=== PATIENT | female | born 1970 | race Caucasian/White ===

== ENCOUNTER 2017-04-12 21:21 | Emergency (ER) | payer BC ==
--- NOTE | 2017-04-12 21:53 | ED ---
Lower Extremity Injury HPI - General Chief Complaint: Extremity Injury, Lower Stated Complaint: knee pain Time Seen by Provider: 04/12/17 21:34 Source: patient, family Mode of arrival: ambulatory Limitations: no limitations, physical limitation - History of Present Illness Initial Comments: This patient is a 46-year-old woman who presents with 24 hours of pain to the distal right thigh, just proximal to the right patella. She states that it is also feeling difficult to fully extend the right leg. Patient denies any trauma. She does not recall twisting her knee. She furthermore denies associated fever or chills, chest pain, cough, dyspnea, hematemesis, palpitations or syncope. MD Complaint: thigh injury Onset/Timin -: hour(s) Injury: Thigh: Right Type of Injury: other Place: home Severity: mild Improves With: nothing Worsens With: movement - Related Data Home Medications Medication Instructions Recorded Confirmed ALPRAZolam [Xanax] 1 mg PO DAILY 04/12/17 04/12/17 Ibuprofen [Motrin] 800 mg PO DAILY 04/12/17 04/12/17 Levothyroxine Sodium [Synthroid] 125 mcg PO DAILY 04/12/17 04/12/17 Methocarbamol [Robaxin] 750 mg PO DAILY 04/12/17 04/12/17 Multivitamins, Thera [Multivitamin 1 tab PO DAILY 04/12/17 04/12/17 (formulary)] Omeprazole 20 mg PO DAILY 04/12/17 04/12/17 Pregabalin [Lyrica] 100 mg PO BID 04/12/17 04/12/17 Previous Rx's Medication Instructions Recorded Ibuprofen [Motrin] 600 mg PO Q8HR PRN #20 tab 04/13/17 Allergies Allergy/AdvReac Type Severity Reaction Status Date / Time No Known Allergies Allergy Verified 04/12/17 22:17 Review of Systems ROS Statement: Those systems with pertinent positive or pertinent negative responses have been documented in the HPI. ROS Other: All systems not noted in ROS Statement are negative. Constitutional: Denies: fever, chills Respiratory: Denies: cough, dyspnea, hemoptysis Cardiovascular: Denies: chest pain, palpitations, edema, syncope Musculoskeletal: Reports: as per HPI, myalgia Past Medical History Past Medical History: Thyroid Disorder Additional Past Medical History / Comment(s): neuro deficits History of Any Multi-Drug Resistant Organisms: None Reported Past Surgical History: Orthopedic Surgery Additional Past Surgical History / Comment(s): "brain decompression" surgery Jul 2015, thyroidectomy Past Psychological History: Anxiety Smoking Status: Never smoker Past Alcohol Use History: None Reported Past Drug Use History: None Reported General Exam Limitations: no limitations, physical limitation Course Vital Signs 04/12/17 04/12/17 21:26 23:21 Temperature 100 F H 98.5 F Pulse Rate 104 H 79 Respiratory 20 18 Rate Blood Pressure 142/89 114/73 O2 Sat by Pulse 99 99 Oximetry Disposition Clinical Impression: Strain of quadriceps Disposition: HOME SELF-CARE Condition: Good Instructions: Muscle Strain (ED) Prescriptions: Ibuprofen [Motrin] 600 mg PO Q8HR PRN #20 tab PRN Reason: Pain Referrals: Tawanna Mac III, MD [Primary Care Provider] - 1-2 days
[2017-04-12 23:22] VITALS: BP 114/73; PULSE 79; RESP 18; TEMP 98.5
--- NOTE | 2017-04-12 23:29 | US ---
EXAMINATION TYPE: US venous doppler duplex LE RT DATE OF EXAM: 04/12/2017 11:06 PM COMPARISON: NONE CLINICAL HISTORY: Pain, R/O DVT. right leg pain SIDE PERFORMED: TECHNIQUE: The lower extremity deep venous system is examined utilizing real time linear array sonog racquel with graded compression, doppler sonography and color-flow sonography. VESSELS IMAGED: External Iliac Vein (EIV) Common Femoral Vein Deep Femoral Vein Greater Saphenous Vein * Femoral Vein Popliteal Vein Small Saphenous Vein * Proximal Calf Veins (* superficial vessels) Right Leg: Negative for DVT No evidence of DVT right leg IMPRESSION: Normal exam. No evidence of deep venous thrombosis in the right leg.
== END 2017-04-13 00:19 | disposition home or self-care (01) ==
LOC: EC 21:21
DX: S76.111A Strain of right quadriceps muscle, fascia and tendon, initial encounter (principal); E07.9 Disorder of thyroid, unspecified; F41.9 Anxiety disorder, unspecified; Z79.1 Long term (current) use of non-steroidal anti-inflammatories (NSAID); Z79.899 Other long term (current) drug therapy; X58.XXXA Exposure to other specified factors, initial encounter
CPT/HCPCS: 99283

== ENCOUNTER → 2017-07-27 | Outpatient (CLI) | payer BC ==
--- NOTE | 2017-07-27 14:31 | XR ---
EXAMINATION TYPE: XR chest 2V DATE OF EXAM: 07/27/2017 COMPARISON: 06/24/2012 INDICATION: Chest pain TECHNIQUE: Frontal and lateral views of the chest are obtained. FINDINGS: The heart size is normal. The pulmonary vasculature is normal. The lungs are clear. IMPRESSION: 1. No acute pulmonary process.
== END | disposition home or self-care (01) ==
LOC: RADXRMAIN 14:09
PROVIDERS: ATTEND Physician Assistant Medical
DX: R07.89 Other chest pain (principal)
CPT/HCPCS: 71046

== ENCOUNTER → 2017-09-27 | Outpatient (CLI) | payer BC ==
[~2017-09-27] MED LIST: REGADENOSON 0.4 MG/5 ML SYRINGE IV ONE
--- NOTE | 2017-09-27 11:33 | EST ---
EXERCISE STRESS AGE: 47 SEX: F HT: 5'2" WT: 200 PROTOCOL: Lexiscan Cardiolite Stress Test HEART RATE REST: 77 BLOOD PRESSURE REST: 130/88 MAXIMUM HEART RATE ACHIEVED: 102 MAXIMUM BLOOD PRESSURE: 130/88 85% MPHR: 149 100% MPHR: 175 INDICATIONS: Chest pain. CLINICAL INFORMATION: Baseline EKG shows sinus rhythm, normal axis, normal intervals. Patient was given intravenous Lexiscan as per protocol. Did not have chest pain or diagnostic ST-segment depression. CONCLUSION: 1. Negative stress test by EKG criteria. 2. Cardiolite portion of the stress test will be reported separately. MMODL / IJN: [id number] /
--- NOTE | 2017-09-27 12:05 | NM ---
EXAMINATION TYPE: NM stress lexiscan cardiolite DATE OF EXAM: 09/27/2017 COMPARISON: NONE HISTORY: Chest pain, shortness of breath, palpitations, family history of coronary artery disease, fa cial numbness, hypertension and prior myocardial infarction. TECHNIQUE: After the intravenous administration of 10.1 mCi Tc 99m Sestamibi - Cardiolite resting SP ECT images acquired 45 minutes post injection. The patient received 0.4mg Lexiscan, 25 mCi Tc 99m Sestamibi - Stress images obtained 30 minutes post injection FINDINGS: Review of stress and rest SPECT images demonstrates no distinct perfusion abnormality. Findings on th e color map are not reproduced on the sagittal, coronal, and axial images. Gated analysis shows norm al wall motion with an estimated left ventricular ejection fraction of 60 % at stress. TID is calc ulated within normal limits at 1.11. IMPRESSION: 1. No scintigraphic evidence for reversible ischemia. 2. Estimated left ventricular ejection fraction of 60%.
== END | disposition home or self-care (01) ==
LOC: RADNMMAIN 08:20
PROVIDERS: ATTEND Family Medicine
DX: R07.89 Other chest pain (principal); R06.02 Shortness of breath; Z82.49 Family history of ischemic heart disease and other diseases of the circulatory system; Z88.8 Allergy status to other drugs, medicaments and biological substances
CPT/HCPCS: 93017; 78452; A9500; J2785

== ENCOUNTER → 2018-01-23 | Outpatient (CLI) | payer MEDICARE ==
--- NOTE | 2018-01-24 08:44 | XR ---
EXAMINATION TYPE: XR foot complete LT DATE OF EXAM: 01/23/2018 CLINICAL HISTORY: pain TECHNIQUE: Frontal, lateral and oblique images of the left foot are obtained. COMPARISON: None. FINDINGS: There is no acute fracture/dislocation evident. The joint spaces appear within normal chisholm its. The overlying soft tissue appears unremarkable. Plantar calcaneal spur noted. IMPRESSION: There is no acute fracture or dislocation. ICD 10 NO FRACTURE, INITIAL EVALUATION
== END | disposition home or self-care (01) ==
LOC: RADCTMAIN 19:44
PROVIDERS: ATTEND Family Medicine
DX: M79.672 Pain in left foot (principal)

== ENCOUNTER 2018-03-30 10:33 | Emergency (ER) | payer MEDICARE ==
--- NOTE | 2018-03-30 11:23 | CT ---
EXAMINATION TYPE: CT lumbar spine wo con DATE OF EXAM: 03/30/2018 COMPARISON: None HISTORY: Low back pain CT DLP: 770.6 mGycm CONTRAST: None TECHNIQUE: CT of the lumbar spine is performed on a spiral scan at 3 mm thick sections. Reconstructed images are performed in the coronal and sagittal planes. FINDINGS: T12-L1: No focal disc herniation or significant disc bulge is evident. No spinal canal stenosis or neural foraminal stenosis is present. L1-L2: No focal disc herniation or significant disc bulge is evident. No spinal canal stenosis or n eural foraminal stenosis is present L2-L3: No focal disc herniation or significant disc bulge is evident. No spinal canal stenosis or n eural foraminal stenosis is present L3-L4: Broad-based disc bulge has mild anterior thecal sac flattening. No AP spinal canal stenosis pr esent. Neural foramen are patent. L4-L5: Minimal disc bulge is anterior thecal sac contact. No AP spinal canal stenosis is present neur al foramen are patent. L5-S1: No focal disc herniation or significant disc bulge is evident. No spinal canal stenosis or n eural foraminal stenosis is present Vertebral alignment appears normal. Some mild sacroiliac joint degenerative change may be present. No acute fractures are evident. IMPRESSION: 1. Disc bulging greatest at L3-4 with mild anterior thecal sac flattening. No stenosis is present.
--- NOTE | 2018-03-30 11:29 | ED ---
General Adult HPI - General Chief complaint: Back Pain/Injury Stated complaint: low back pain Time Seen by Provider: 03/30/18 10:37 Source: patient, RN notes reviewed Mode of arrival: ambulatory Limitations: no limitations - History of Present Illness Initial comments: This a 47-year-old female presents emergency Department with chief complaint of right foot burning sensation of her first digit. Patient states that the very tip it's severe pain. She states that even hurts when brushing against objects. Patient states his been no redness no swelling. She states only injury that she had was 6 days ago she fell back on her left buttocks region. Patient has had pain in her buttocks region but is very mild. She does admit that she has chronic issues with fall and chronic back and neck issues. Patient states that she's had no bowel bladder incontinence or retention. Patient denies any lower extremity weakness of usual. She is in physical therapy for her right knee internal derangement. Patient denies any abdominal pain. Patient has fever or chills. - Related Data Home Medications Medication Instructions Recorded Confirmed ALPRAZolam [Xanax] 1 mg PO HS 04/12/17 03/30/18 Ibuprofen [Motrin] 800 mg PO BID 04/12/17 03/30/18 Levothyroxine Sodium [Synthroid] 125 mcg PO DAILY 04/12/17 03/30/18 Baclofen [Lioresal] 10 mg PO QAM 03/30/18 03/30/18 Baclofen [Lioresal] 20 mg PO HS 03/30/18 03/30/18 Previous Rx's Medication Instructions Recorded predniSONE 50 mg PO DAILY #5 tab 03/30/18 Allergies Allergy/AdvReac Type Severity Reaction Status Date / Time No Known Allergies Allergy Verified 03/30/18 10:50 Review of Systems ROS Statement: Those systems with pertinent positive or pertinent negative responses have been documented in the HPI. ROS Other: All systems not noted in ROS Statement are negative. Past Medical History Past Medical History: Thyroid Disorder Additional Past Medical History / Comment(s): neuro deficits History of Any Multi-Drug Resistant Organisms: None Reported Past Surgical History: Orthopedic Surgery Additional Past Surgical History / Comment(s): "brain decompression" surgery Jul 2015, thyroidectomy Past Psychological History: Anxiety Smoking Status: Never smoker Past Alcohol Use History: None Reported Past Drug Use History: None Reported General Exam Limitations: no limitations General appearance: alert, in no apparent distress Head exam: Present: atraumatic, normocephalic, normal inspection Respiratory exam: Present: normal lung sounds bilaterally. Absent: respiratory distress, wheezes, rales, rhonchi, stridor Cardiovascular Exam: Present: regular rate, normal rhythm, normal heart sounds. Absent: systolic murmur, diastolic murmur, rubs, gallop, clicks GI/Abdominal exam: Present: soft, normal bowel sounds. Absent: distended, tenderness, guarding, rebound, rigid Rectal exam: Present: normal inspection, normal rectal tone, other (No decreased sensation) Extremities exam: Present: other (Full range of motion of lower extremities and full strength neurovascular intact there is no open lesions or sores no erythema into the joint patient's right foot is unremarkable.) Course Vital Signs 03/30/18 10:37 Temperature 98.2 F Pulse Rate 66 Respiratory 18 Rate Blood Pressure 137/88 O2 Sat by Pulse 100 Oximetry Medical Decision Making - Medical Decision Making 47-year-old female presented for right foot first toe pain and burning sensation. She does have a cystic herniation at L3-L4 consistent with her symptoms. Patient has normal course residual 203 to 18 post void. Patient normal rectal tone and sensation. Patient was started on steroids, given pain medication and follow-up with lumbar radiculopathy type symptoms. Patient will see Dr. Charles return parameters were discussed. - Lab Data Result diagrams: 03/30/18 11:08 03/30/18 11:08 Lab Results 03/30/18 03/30/18 Range/Units 11:08 11:08 WBC 5.1 (3.8-10.6) k/uL RBC 4.76 (3.80-5.40) m/uL Hgb 14.2 (11.4-16.0) gm/dL Hct 42.8 (34.0-46.0) % MCV 90.0 (80.0-100.0) fL MCH 29.9 (25.0-35.0) pg MCHC 33.2 (31.0-37.0) g/dL RDW 13.0 (11.5-15.5) % Plt Count 219 (150-450) k/uL Neutrophils % 55 % Lymphocytes % 37 % Monocytes % 4 % Eosinophils % 2 % Basophils % 0 % Neutrophils # 2.8 (1.3-7.7) k/uL Lymphocytes # 1.9 (1.0-4.8) k/uL Monocytes # 0.2 (0-1.0) k/uL Eosinophils # 0.1 (0-0.7) k/uL Basophils # 0.0 (0-0.2) k/uL Sodium 143 (137-145) mmol/L Potassium 4.3 (3.5-5.1) mmol/L Chloride 109 H (98-107) mmol/L Carbon Dioxide 26 (22-30) mmol/L Anion Gap 8 mmol/L BUN 11 (7-17) mg/dL Creatinine 0.64 (0.52-1.04) mg/dL Est GFR (CKD-EPI)AfAm >90 (>60 ml/min/1.73 sqM) Est GFR (CKD-EPI)NonAf >90 (>60 ml/min/1.73 sqM) Glucose 87 (74-99) mg/dL Uric Acid 3.0 L (3.7-7.4) mg/dL Calcium 8.9 (8.4-10.2) mg/dL Magnesium 2.3 (1.6-2.3) mg/dL C-Reactive Protein <5.0 (<10.0) mg/L Disposition Clinical Impression: Lumbar radiculopathy, acute, Lumbar disc herniation Disposition: HOME SELF-CARE Condition: Stable Instructions: Lumbar Radiculopathy (ED) Additional Instructions: Please return to the Emergency Department if symptoms worsen or any other concerns. Prescriptions: predniSONE 50 mg PO DAILY #5 tab Is patient prescribed a controlled substance at d/c from ED?: No Referrals: Tawanna Mac III, MD [Primary Care Provider] - 1-2 days Giorgio Valerio DO [Doctor of Osteopathic Medicine] - 1-2 days Time of Disposition: 12:43
[2018-03-30 11:51] LABS: Basophils % (A) 0 %; Eosinophils # (A) 0.1 k/uL (0-0.7); Eosinophils % (A) 2 %; HCT 42.8 % (34.0-46.0); HGB 14.2 gm/dL (11.4-16.0); Lymphocytes # (A) 1.9 k/uL (1.0-4.8); Lymphocytes % (A) 37 %; MCH 29.9 pg (25.0-35.0); MCHC 33.2 g/dL (31.0-37.0); Mean Platelet Volume 8.2; Monocytes # (A) 0.2 k/uL (0-1.0); Monocytes % (A) 4 %; Neutrophils # (A) 2.8 k/uL (1.3-7.7); Neutrophils % (A) 55 %; Platelet Count 219 k/uL (150-450); RBC 4.76 m/uL (3.80-5.40); WBC 5.1 k/uL (3.8-10.6)
[2018-03-30 11:57] LABS: Anion Gap 8 mmol/L; Blood Urea Nitrogen 11 mg/dL (7-17); C Reactive Protein <5.0 mg/L (<10.0); Calcium 8.9 mg/dL (8.4-10.2); Carbon Dioxide 26 mmol/L (22-30); Chloride 109 mmol/L (98-107); Glucose 87 mg/dL (74-99); Magnesium 2.3 mg/dL (1.6-2.3); Potassium 4.3 mmol/L (3.5-5.1); Sodium 143 mmol/L (137-145)
[2018-03-30 12:42] VITALS: BP 133/88; PULSE 58; RESP 16
[2018-03-30] MEDS ORDERED: traMADol 50 MG STARTER PACK 3 TAB BTL PO STA (12:42)
[2018-03-30] MEDS ORDERED: ACET/COD 300 MG/30 MG STARTER PACK 6 TAB BTL PO STA (12:42)
[2018-03-30] MEDS ORDERED: predniSONE 20 MG TAB PO STA (12:43)
[2018-03-30 12:59] VITALS: TEMP 98.6
== END 2018-03-30 12:55 | disposition home or self-care (01) ==
LOC: EC 10:33
DX: M51.16 Intervertebral disc disorders with radiculopathy, lumbar region (principal); E07.9 Disorder of thyroid, unspecified; F41.9 Anxiety disorder, unspecified; Z79.1 Long term (current) use of non-steroidal anti-inflammatories (NSAID); Z79.899 Other long term (current) drug therapy
CPT/HCPCS: 36415; 80048; 83735; 84550; 85025; 86140; 72131; 99284; J7512

== ENCOUNTER 2018-04-04 11:35 | Emergency (ER) | payer MEDICARE ==
[2018-04-04] MEDS ORDERED: DIAZEPAM 5 MG/ML 2 ML INJ IVP STA (12:29)
[2018-04-04] MEDS ORDERED: RX INFO: IV CONTRAST WAS GIVEN 1 EACH MISC MISCELLANE PRN (12:31)
--- NOTE | 2018-04-04 12:36 | ED ---
General Adult HPI - General Chief complaint: Back Pain/Injury Stated complaint: Something popped in back hurts to be breathe Time Seen by Provider: 04/04/18 11:40 Source: patient, RN notes reviewed Mode of arrival: wheelchair Limitations: no limitations - History of Present Illness Initial comments: This is a 47-year-old female who has a past medical history significant for Chiari malformation which was decompressed and 2016 2-1/2 years ago. Patient states since then she's had some generalized weakness and muscle pains. Patient comes in today because she was putting a bun in her hair and when she twists she felt a pain in the middle of her back. Patient also states taking deep breaths increases the pain.. Patient states any movement makes the pain worse. Patient denies any problems with shortness of breath but states any bending twisting increases the pain significantly. Patient denies any numbness or weakness. Patient states she's had two-week history of some burning sensation to her fingers and toes. Patient states she is seen her doctor twice and the emergency room once before for that. Patient states she's finishing up a steroid pack currently for lower back problems which she was seen in the emergency department for recently. Patient denies any recent injury or trauma. Patient denies any abdominal pain. Patient denies any chest pain or palpitations. - Related Data Home Medications Medication Instructions Recorded Confirmed ALPRAZolam [Xanax] 1 mg PO HS 04/12/17 04/04/18 Ibuprofen [Motrin] 800 mg PO BID 04/12/17 04/04/18 Levothyroxine Sodium [Synthroid] 125 mcg PO DAILY 04/12/17 04/04/18 Baclofen [Lioresal] 10 mg PO QAM 03/30/18 04/04/18 Baclofen [Lioresal] 20 mg PO HS 03/30/18 04/04/18 Previous Rx's Medication Instructions Recorded predniSONE 50 mg PO DAILY #5 tab 03/30/18 Cyclobenzaprine [Flexeril] 10 mg PO TID #20 tab 04/04/18 Allergies Allergy/AdvReac Type Severity Reaction Status Date / Time No Known Allergies Allergy Verified 04/04/18 12:04 Review of Systems ROS Statement: Those systems with pertinent positive or pertinent negative responses have been documented in the HPI. ROS Other: All systems not noted in ROS Statement are negative. Past Medical History Past Medical History: Thyroid Disorder Additional Past Medical History / Comment(s): neuro deficits History of Any Multi-Drug Resistant Organisms: None Reported Past Surgical History: Orthopedic Surgery Additional Past Surgical History / Comment(s): "brain decompression" surgery Jul 2015, thyroidectomy Past Psychological History: Anxiety Smoking Status: Never smoker Past Alcohol Use History: None Reported Past Drug Use History: None Reported General Exam - General Exam Comments Initial Comments: GENERAL: Patient is well-developed and well-nourished. Patient is nontoxic and well- hydrated and is in moderate distress. ENT: Neck is soft and supple. No significant lymphadenopathy is noted. Oropharynx is clear. Moist mucous membranes. Neck has full range of motion without eliciting any pain. EYES: The sclera were anicteric and conjunctiva were pink and moist. Extraocular movements were intact and pupils were equal round and reactive to light. Eyelids were unremarkable. PULMONARY: Unlabored respirations. Good breath sounds bilaterally. No audible rales rhonchi or wheezing was noted. CARDIOVASCULAR: There is a regular rate and rhythm without any murmurs gallops or rubs. ABDOMEN: Soft and nontender with normal bowel sounds. SKIN: Skin is clear with no lesions or rashes and otherwise unremarkable. NEUROLOGIC: Patient is alert and oriented x3. Cranial nerves II through XII are grossly intact. Motor and sensory are also intact. Normal speech, volume and content. Symmetrical smile. MUSCULOSKELETAL: Normal extremities with adequate strength and full range of motion. No lower extremity swelling or edema. No calf tenderness. Mid back is tender in the paraspinous muscles bilaterally LYMPHATICS: No significant lymphadenopathy is noted PSYCHIATRIC: Normal psychiatric evaluation. Limitations: no limitations Course Vital Signs 04/04/18 04/04/18 04/04/18 11:39 11:57 12:00 Temperature 97.9 F Pulse Rate 83 68 Pulse Rate [ Pulse Oximetery ] Respiratory 20 15 Rate Blood Pressure 154/105 143/107 O2 Sat by Pulse 100 92 L 98 Oximetry 04/04/18 04/04/18 04/04/18 12:01 12:30 13:54 Temperature Pulse Rate 70 67 Pulse Rate [ 71 Pulse Oximetery ] Respiratory 12 20 Rate Blood Pressure 141/101 133/91 O2 Sat by Pulse 97 98 Oximetry Medical Decision Making - Medical Decision Making CAT scan showed no evidence of any acute injury or problem. Patient received Dilaudid and Valium while in the emergency department her pain went down to a 2 out of 10 she's feeling considerably better when like to be discharged home. Disposition Clinical Impression: Thoracic back pain Disposition: HOME SELF-CARE Condition: Good Instructions: Thoracic Pain (ED) Prescriptions: Cyclobenzaprine [Flexeril] 10 mg PO TID #20 tab Is patient prescribed a controlled substance at d/c from ED?: No Referrals: Tawanna Mac III, MD [Primary Care Provider] - 1-2 days Time of Disposition: 14:37
[2018-04-04] MEDS ORDERED: ONDANSETRON 4 MG/2 ML VIAL IVP STA (13:31)
[2018-04-04] MEDS ORDERED: HYDROmorphone 1 MG/ML 1 ML SYRINGE IVP STA (13:31)
--- NOTE | 2018-04-04 13:45 | CT ---
EXAMINATION TYPE: CT ChestAbdPelvis w con DATE OF EXAM: 04/04/2018 COMPARISON: HISTORY: [place] something pop in her back, JUNAITA, difficult urination CT DLP: 872.4 mGycm Automated exposure control for dose reduction was used. CONTRAST: CT scan of the chest, abdomen and pelvis is performed without Oral Contrast and with IV Contrast, pat ient injected with 100 mL of Isovue 300. FINDINGS: LUNGS: The lungs are grossly clear, there is no concerning parenchymal mass or nodule identified. T here is no pleural effusion or pneumothorax seen. The tracheobronchial tree is patent. MEDIASTINUM: There are no greater than 1 cm hilar or mediastinal lymph nodes. No pericardial effusi on is seen. AORTA: No significant abnormality is seen. There is no dissection or embolus evident OTHER: No additional significant abnormality is seen. LIVER/GB: Liver shows low attenuation but is not enlarged, gallbladder is normal. PANCREAS: No significant abnormality is seen. SPLEEN: No significant abnormality is seen. ADRENALS: No significant abnormality is seen. KIDNEYS: No significant abnormality is seen. REPRODUCTIVE ORGANS: The uterus is bulky likely indicating underlying fibroid uterus, small focus of increased attenuation present at the cervix may be related to nabothian cysts BOWEL: No significant abnormality is seen. FREE AIR: No Free Air visible. ASCITES: None seen. RETROPERITONEAL ADENOPATHY: No retroperitoneal adenopathy is seen. LYMPH NODES: No greater than 1 cm abdominal or pelvic lymph nodes are appreciated. URINARY BLADDER: No significant abnormality is seen. PELVIC ADENOPATHY: None visualized. OSSEOUS STRUCTURES: No significant abnormality is seen. IMPRESSION: No significant abnormalities evident. Fibroid uterus.
[2018-04-04 13:55] VITALS: RESP 20
[2018-04-04] MEDS ORDERED: KETOROLAC 60 MG/2 ML VIAL IVP STA (14:36)
[2018-04-04 15:23] VITALS: BP 147/96; PULSE 61; TEMP 98.3
== END 2018-04-04 15:18 | disposition home or self-care (01) ==
LOC: EC 11:35
DX: M54.6 Pain in thoracic spine (principal); R53.1 Weakness; M79.10 Myalgia, unspecified site; E07.9 Disorder of thyroid, unspecified; F41.9 Anxiety disorder, unspecified; Z79.1 Long term (current) use of non-steroidal anti-inflammatories (NSAID); Z79.899 Other long term (current) drug therapy; Z90.89 Acquired absence of other organs; Z98.890 Other specified postprocedural states
CPT/HCPCS: 71260; 74177; 96374; 96375; 99284

== ENCOUNTER → 2020-05-27 | Outpatient (CLI) | payer MEDICARE, BC ==
[2020-05-27 11:11] LABS: Basophils % (A) 1 %; Eosinophils # (A) 0.1 k/uL (0-0.7); Eosinophils % (A) 1 %; HCT 45.1 % (34.0-46.0); Lymphocytes # (A) 1.5 k/uL (1.0-4.8); Lymphocytes % (A) 24 %; MCH 30.3 pg (25.0-35.0); MCHC 33.3 g/dL (31.0-37.0); MCV 90.8 fL (80.0-100.0); Mean Platelet Volume 8.6; Monocytes # (A) 0.3 k/uL (0-1.0); Monocytes % (A) 4 %; Neutrophils # (A) 4.5 k/uL (1.3-7.7); Neutrophils % (A) 69 %; Platelet Count 208 k/uL (150-450); RBC 4.96 m/uL (3.80-5.40); RDW 12.8 % (11.5-15.5); WBC 6.4 k/uL (3.8-10.6)
[2020-05-27 13:42] LABS: Erythrocyte Sedimentation Rate 4 mm/hr (0-20)
[2020-05-27 19:14] LABS: ALT 18 U/L (8-44); AST 25 U/L (13-35); African American GFR (CKD) 119.6 (60.0-200.0); Alkaline Phosphatase 53 U/L (41-126); BUN/Creat Ratio 17.14 Ratio (12.00-20.00); C Reactive Protein <0.4 mg/dL (0.0-0.8); Calcium 8.8 mg/dL (8.7-10.3); Carbon Dioxide 25.6 mmol/L (21.6-31.8); Chloride 109 mmol/L (96-109); Globulin 2.1 g/dL (1.6-3.3); Glucose 85 mg/dL (70-110); Non-African American GFR(CKD) 103.2 (60.0-200.0); Potassium 4.7 mmol/L (3.5-5.5); Sodium 139 mmol/L (135-145); Total Bilirubin 0.8 mg/dL (0.3-1.2); Total Protein 6.5 g/dL (6.2-8.2)
[2020-05-28 00:08] LABS: Hemoglobin A1C 5.2 % (4.0-6.0)
[2020-05-28 12:34] LABS: HLA B27 NEGATIVE
== END | disposition home or self-care (01) ==
LOC: LABWHC1 10:33
PROVIDERS: ATTEND Physician Assistant Medical
DX: E89.0 Postprocedural hypothyroidism (principal); F41.9 Anxiety disorder, unspecified; G62.9 Polyneuropathy, unspecified; M62.81 Muscle weakness (generalized); M79.7 Fibromyalgia; Q07.00 Arnold-Chiari syndrome without spina bifida or hydrocephalus
CPT/HCPCS: 36415; 80053; 82306; 82607; 83036; 84443; 85025; 85652; 86140; 86812

== ENCOUNTER → 2020-09-02 | Outpatient (CLI) | payer MEDICARE ==
--- NOTE | 2020-09-04 10:57 | MM ---
Reason for exam: screening (asymptomatic). Last mammogram was performed 12 years and 5 months ago. History: Family history of breast cancer in grandmother. Physical Findings: A clinical breast exam by your physician is recommended on an annual basis and results should be correlated with mammographic findings. MG Screening Mammo w CAD Bilateral CC and MLO view(s) were taken. Prior study comparison: March 04, 2016, mammogram, performed at [facility]. The breast tissue is heterogeneously dense. This may lower the sensitivity of mammography. No significant changes when compared with prior studies. ASSESSMENT: Benign, BI-RAD 2 RECOMMENDATION: Routine screening mammogram of both breasts in 1 year.
== END | disposition home or self-care (01) ==
LOC: RADMAMWWP 11:11
PROVIDERS: ATTEND Obstetrics & Gynecology
DX: Z12.31 Encounter for screening mammogram for malignant neoplasm of breast (principal); Z80.3 Family history of malignant neoplasm of breast
CPT/HCPCS: 77067

== ENCOUNTER 2021-12-25 13:16 | Emergency (ER) | payer MEDICARE ==
--- NOTE | 2021-12-25 16:09 | CT ---
EXAMINATION TYPE: CT lumbar spine wo con CT DLP: 831.5 mGycm, Automated exposure control for dose reduction was used. DATE OF EXAM: 12/25/2021 3:43 PM COMPARISON: CT lumbar spine 03/30/2018. CLINICAL INDICATION:Female, 51 years old with history of pain, radicular symptoms; right toe pain TECHNIQUE: Multiple axial images were obtained from the midportion of T11 through the sacroiliac iggy nts. Soft tissue and bone windows in coronal and sagittal planes were obtained and reviewed. 3-D ref ormats of the bones were created on a separate workstation and submitted for review. FINDINGS: Alignment: There are 5 lumbar type vertebral bodies within normal alignment. Bone: No evidence of fracture is identified. Left sacrum sclerotic focus consistent bony island. Discs: T12-L1: No spinal canal or neural foraminal stenosis is identified. L1-L2: No spinal canal or neural foraminal stenosis is identified. L2-L3: No spinal canal or neural foraminal stenosis is identified. L3-L4: No spinal canal or neural foraminal stenosis is identified. L4-L5: No spinal canal or neural foraminal stenosis is identified. L5-S1: No spinal canal or neural foraminal stenosis is identified. Other: None IMPRESSION: 1. No evidence of fracture of the lumbar spine. 2. No significant spinal canal neural foraminal stenosis.
--- NOTE | 2021-12-25 16:36 | ED ---
General Adult HPI - General Chief complaint: Extremity Injury, Lower Stated complaint: leg pain Time Seen by Provider: 12/25/21 15:17 Source: patient, RN notes reviewed Mode of arrival: ambulatory Limitations: no limitations - History of Present Illness Initial comments: 51-year-old female presents emergency Department with chief complaint of right leg pain, spasms. Patient states that she always has some intermittent episodes but states it seemed more frequent recently. Patient states that she also had colon recent which she had some something diarrhea patient states that she had episodes in which she had stool herself. She did feel that she had a go to the bathroom. She has no urinary retention. Patient states that ever since her care physician surgeries she's had issues with right leg she does see neurology. Patient has no history DVT denies any leg discoloration or swelling noted. Patient also states that she has chronic paresthesias. - Related Data Home Medications Medication Instructions Recorded Confirmed ALPRAZolam [Xanax] 1 mg PO HS 04/12/17 04/04/18 Ibuprofen [Motrin] 800 mg PO BID 04/12/17 04/04/18 Levothyroxine Sodium [Synthroid] 125 mcg PO DAILY 04/12/17 04/04/18 Baclofen [Lioresal] 10 mg PO QAM 03/30/18 04/04/18 Baclofen [Lioresal] 20 mg PO HS 03/30/18 04/04/18 Previous Rx's Medication Instructions Recorded predniSONE 50 mg PO DAILY #5 tab 03/30/18 Cyclobenzaprine [Flexeril] 10 mg PO TID #20 tab 04/04/18 Allergies Allergy/AdvReac Type Severity Reaction Status Date / Time No Known Allergies Allergy Verified 12/25/21 13:21 Review of Systems ROS Statement: Those systems with pertinent positive or pertinent negative responses have been documented in the HPI. ROS Other: All systems not noted in ROS Statement are negative. Past Medical History Past Medical History: Thyroid Disorder Additional Past Medical History / Comment(s): neuro deficits History of Any Multi-Drug Resistant Organisms: None Reported Past Surgical History: Orthopedic Surgery Additional Past Surgical History / Comment(s): "brain decompression" surgery Jul 2015, thyroidectomy Past Psychological History: Anxiety Smoking Status: Never smoker Past Alcohol Use History: None Reported Past Drug Use History: None Reported General Exam Limitations: no limitations General appearance: alert, in no apparent distress Head exam: Present: atraumatic, normocephalic, normal inspection Eye exam: Present: normal appearance, PERRL, EOMI. Absent: scleral icterus, conjunctival injection, periorbital swelling ENT exam: Present: normal exam, normal oropharynx, mucous membranes moist Neck exam: Present: normal inspection, full ROM. Absent: tenderness, meningismus, lymphadenopathy Respiratory exam: Present: normal lung sounds bilaterally. Absent: respiratory distress, wheezes, rales, rhonchi, stridor Cardiovascular Exam: Present: regular rate, normal rhythm, normal heart sounds. Absent: systolic murmur, diastolic murmur, rubs, gallop, clicks Extremities exam: Present: other (Bilateral lower extremity pulses equal bilaterally, neurovascular intact, full range of motion equal equal warmth strength 5/5) Neurological exam: Present: reflexes normal. Absent: motor sensory deficit Course Vital Signs 12/25/21 12/25/21 13:17 15:48 Temperature 97.9 F Pulse Rate 99 69 Respiratory 18 18 Rate Blood Pressure 167/97 136/85 O2 Sat by Pulse 98 97 Oximetry Medical Decision Making - Medical Decision Making 42-year-old presented for right leg muscle spasms discomfort's patient's. Patient workup was negative including CT and ultrasound. Patient will follow-up with her neurologist or return parameters were discussed. Disposition Clinical Impression: Fasciculation of lower extremity Disposition: HOME SELF-CARE Condition: Stable Instructions (If sedation given, give patient instructions): Muscle Spasm (ED) Additional Instructions: Please return to the Emergency Department if symptoms worsen or any other concerns. Is patient prescribed a controlled substance at d/c from ED?: No Referrals: Viktoria Lorenzo MD [Primary Care Provider] - 1-2 days Time of Disposition: 17:01
--- NOTE | 2021-12-25 16:50 | US ---
EXAMINATION TYPE: US venous doppler duplex LE RT DATE OF EXAM: 12/25/2021 4:35 PM COMPARISON: Ultrasound venous duplex right lower extremity 04/12/2017. CLINICAL HISTORY: pain. SIDE PERFORMED: Right TECHNIQUE: The lower extremity deep venous system is examined utilizing real time linear array sonog racquel with graded compression, doppler sonography and color-flow sonography. VESSELS IMAGED: Common Femoral Vein Deep Femoral Vein Greater Saphenous Vein * Femoral Vein Popliteal Vein Small Saphenous Vein * Proximal Calf Veins (* superficial vessels) Grayscale, color doppler, spectral doppler imaging performed of the deep veins of the lower extremiti es. There is normal flow, compressibility, vascular waveforms. IMPRESSION: No ultrasound evidence of right lower extremity DVT.
[2021-12-25 17:16] VITALS: BP 128/99; PULSE 75; RESP 16; TEMP 97.8
== END 2021-12-25 17:14 | disposition home or self-care (01) ==
LOC: EC 13:16
DX: R25.3 Fasciculation (principal); E07.9 Disorder of thyroid, unspecified; Z79.899 Other long term (current) drug therapy
CPT/HCPCS: 72131; 99283

== ENCOUNTER → 2022-05-09 | Outpatient (CLI) | payer MEDICARE ==
--- NOTE | 2022-05-09 13:38 | XR ---
EXAMINATION TYPE: XR knee limited RT DATE OF EXAM: 05/09/2022 1:24 PM INDICATION: Patient age:Female; 51 years old; Reason for study: M25.561 R knee pain; COMPARISON: None. TECHNIQUE: The Right knee(s) was examined in Frontal, lateral projections. FINDINGS: Osteophyte formation of the tibial plateau and patella. No evidence of any acute osseous p athology, joint space narrowing, soft tissue swelling, or joint effusion is noted. Fabella is present. IMPRESSION: 1. No acute osseous pathology. 2. Mild tricompartmental osteoarthritic changes.
== END | disposition home or self-care (01) ==
LOC: RADXRMAIN 13:12
PROVIDERS: ATTEND Physician Assistant Medical
DX: M17.11 Unilateral primary osteoarthritis, right knee (principal)

== ENCOUNTER → 2022-09-09 | Outpatient (CLI) | payer MEDICARE ==
[2022-09-09 20:31] LABS: African American GFR (CKD) 117.1 (60.0-200.0); Albumin 4.3 g/dL (3.8-4.9); Albumin/Globulin Ratio 1.72 (1.60-3.17); Anion Gap 10.7 mmol/L (10.00-18.00); BUN/Creat Ratio 13.43 Ratio (12.00-20.00); Blood Urea Nitrogen 9.4 mg/dL (9.0-27.0); Calcium 9.2 mg/dL (8.7-10.3); Carbon Dioxide 26.3 mmol/L (20.0-27.5); Globulin 2.5 g/dL (1.6-3.3); Potassium 4.6 mmol/L (3.5-5.5); Total Bilirubin 0.9 mg/dL (0.30-1.20); Total Protein 6.8 g/dL (6.2-8.2)
== END | disposition home or self-care (01) ==
LOC: LABWHC1 10:55
PROVIDERS: ATTEND Student in an Organized Health Care Education/Training Program
DX: B35.0 Tinea barbae and tinea capitis (principal)
CPT/HCPCS: 36415; 80053

== ENCOUNTER → 2022-10-25 | Outpatient (CLI) | payer MEDICARE ==
--- NOTE | 2022-10-25 12:10 | MR ---
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 FINDINGS: ACL, PCL, and MCL are intact. There is some inhomogeneous signal on the popliteus tendon suggesting tendinosis and moderate fluid a long the popliteus tendon sheath. LCL complex is otherwise intact. Mild soft tissue edema involving the lateral head gastrocnemius. There is an oblique tear involving the posterior horn and body of the medial meniscus. Small size to the meniscal body may reflect prior surgery. There is moderate irregular cartilage loss throughout th e medial compartment with mild extrusion of the meniscal body. More focal moderate irregular cartilage loss along the mid weightbearing aspect of the lateral compar tment. Small size to the body of the lateral meniscus may reflect prior surgery or chronic tear. Degenerative spurring in the patellofemoral compartment. Mild diffuse thinning of articular cartilage with a additional measuring along the mid patella. Extensor mechanism appears intact. There is a moderate knee joint effusion and trace effusion in the deep infrapatellar bursa. No sizable Bills's cyst. Normal popliteal artery anatomy. Mild generalized muscle atrophy. There is prominent patchy red marro w hyperplasia throughout. No suspicious bone marrow replacement is seen. No suspicious bone marrow r eplacement. IMPRESSION: 1. The bodies of both medial and lateral menisci are small. Query prior surgery and partial meniscect omies. In addition, there is a possible oblique tear involving the posterior horn and body of the med ial meniscus versus postsurgical change. 2. Moderate medial compartmental osteoarthrosis. Mild lateral compartment osteoarthrosis. Mild cartil age thinning throughout the patellofemoral compartment. 3. Moderate knee joint effusion is nonspecific. The overall pattern does not clearly indicate septic arthritis. Arthrocentesis for fluid analysis if clinically indicated. 4. Popliteus tendinosis. Some edema involving the lateral head gastrocnemius may be reactive to alter ed biomechanics or could represent a mild muscle strain. 5. Prominent patchy red marrow hyperplasia throughout. Findings may be seen in the setting of anemia, obesity, smoking, and chronic disease. Further evaluation as clinically indicated.
== END | disposition home or self-care (01) ==
LOC: RADMRIMAIN 06:55
PROVIDERS: ATTEND Family Medicine
DX: S83.241A Other tear of medial meniscus, current injury, right knee, initial encounter (principal); M17.11 Unilateral primary osteoarthritis, right knee; M25.461 Effusion, right knee

== ENCOUNTER → 2023-01-19 | Outpatient (CLI) | payer MEDICARE ==
--- NOTE | 2023-01-19 10:50 | US ---
EXAMINATION TYPE: US kidneys/renal and bladder DATE OF EXAM: 01/19/2023 COMPARISON: CT abdomen pelvis 07/10/2022 CLINICAL INDICATION: Female, 52 years old with history of N39.42 incontinence, R10.2 pelvic pain; dif ficulty emptying bladder when sitting x 6-12 months, incontinence when carrying objects after straini ng injury end of November EXAM MEASUREMENTS: Right Kidney: 9.9x5.7x5.1 cm Left Kidney: 9.2x4.5x4.9 cm Right Kidney: wnl Left Kidney: wnl Bladder: wnl Bilateral Jets seen: Yes There is no evidence for hydronephrosis at this point in time. No nephrolithiasis is seen. No darryl s are identified. Cortical medullary differentiation is maintained bilaterally. The urinary bladder i s anechoic. Bilateral ureteral jets are seen. exam slightly limited due to bowel gas IMPRESSION: 1. No hydronephrosis or nephrolithiasis. 2. Unremarkable ultrasound appearance of the urinary bladder.
== END | disposition home or self-care (01) ==
LOC: RADUSWWP 07:08
PROVIDERS: ATTEND Family Medicine
DX: N39.42 Incontinence without sensory awareness (principal); R10.2 Pelvic and perineal pain
CPT/HCPCS: 76770

== ENCOUNTER → 2023-07-28 | Outpatient (CLI) | payer MEDICARE | END | disposition home or self-care (01) | LOC: LABWHC1 12:54 | PROVIDERS: ATTEND Psychiatry & Neurology Neurology | DX: M25.50 Pain in unspecified joint (principal); H04.129 Dry eye syndrome of unspecified lacrimal gland; Q79.60 Ehlers-Danlos syndrome, unspecified; R68.2 Dry mouth, unspecified | CPT/HCPCS: 36415; 86235 ==

== ENCOUNTER → 2023-11-08 | Outpatient (CLI) | payer MEDICARE ==
--- NOTE | 2023-11-08 18:12 | XR ---
EXAMINATION TYPE: XR cervical spine 3 views XR thoracic spine 3 views XR lumbar spine 5 views DATE OF EXAM: 11/08/2023 Comparison: 03/10/2016 Clinical History: 53-year-old female G43.009 R07.9 CHEST PAIN, UNSPECIFIED G62.9 POLYNE Findings: Cervical spine: Uncovertebral joint and facet arthropathy lower cervical spine. Mild degenerative disc disease lower cervical spine especially C6-C7. Alignment is maintained. No predental space widening or prevertebral soft tissue swelling. Normal odontoid view. Thoracic spine: Leftward truncal shift may be positional. 12 rib bearing thoracic vertebral bodies. All pedicles are visualized. Vertebral body heights are preserved and alignment is maintained. Lumbar spine: 5 lumbar type vertebral bodies. Facet arthropathy lower lumbar spine. No pars interarticularis defect . Vertebral body heights and disc interspaces are maintained. There may be trace grade 1 retrolisthes is L2-L3. Otherwise, alignment is maintained. Impression: 1. Cervical spine: Mild to moderate spondylotic changes especially lower cervical spine at C6/C7. No prevertebral soft tissue swelling or malalignment. 2. Thoracic spine: Leftward truncal shift may be positional or due to muscle spasm. No vertebral comp ression collapse or malalignment. 3. Lumbar spine: Some facet arthropathy lower lumbar spine. There may be a trace grade 1 retrolisthes is at L2-L3. No vertebral compression collapse.
== END | disposition home or self-care (01) ==
LOC: RADXRMAIN 08:23
PROVIDERS: ATTEND Family Medicine
DX: M47.812 Spondylosis without myelopathy or radiculopathy, cervical region (principal); M47.816 Spondylosis without myelopathy or radiculopathy, lumbar region; M43.16 Spondylolisthesis, lumbar region; Q07.00 Arnold-Chiari syndrome without spina bifida or hydrocephalus; G43.009 Migraine without aura, not intractable, without status migrainosus; G62.9 Polyneuropathy, unspecified; M62.81 Muscle weakness (generalized); M79.7 Fibromyalgia
CPT/HCPCS: 72040; 72070; 72110

== ENCOUNTER → 2023-11-24 | Outpatient (CLI) | payer MEDICARE ==
--- NOTE | 2023-11-26 14:19 | MR ---
EXAMINATION TYPE: MR thoracic spine wo con DATE OF EXAM: 11/24/2023 7:31 AM COMPARISON: NONE HISTORY: Back pain, numbness in feet, right leg weakness. Multiplanar MultiSpin echo imaging of the thoracic spine was performed. Disc spaces: No evidence for herniation protrusion or significant degenerative disc disease. Spinal canal: No evidence for canal stenosis. No intrinsic or extrinsic lesion. Thoracic spinal cord: Thoracic spinal cord is of normal caliber and signal. Paraspinal soft tissues: No evidence for paraspinal mass. No destructive lesions seen. Vertebral segments: No evidence for fracture or bony lesion. IMPRESSION: Negative study
== END | disposition home or self-care (01) ==
LOC: RADMRIMAIN 06:13
PROVIDERS: ATTEND Psychiatry & Neurology Neurology
DX: G81.91 Hemiplegia, unspecified affecting right dominant side (principal); R53.1 Weakness
CPT/HCPCS: 72146

== ENCOUNTER → 2023-11-24 | Outpatient (CLI) | payer MEDICARE | END | disposition home or self-care (01) | LOC: LABWHC1 11:26 | PROVIDERS: ATTEND Physician Assistant Medical | DX: B02.9 Zoster without complications (principal) | CPT/HCPCS: 36415; 82784 ==

== ENCOUNTER 2023-12-19 09:33 | Day surgery (SDC) | payer MEDICARE ==
[~2023-12-19 09:33] MED LIST changes: +LACTATED RINGERS 1,000 ML IV SCH; -REGADENOSON 0.4 MG/5 ML SYRINGE IV ONE
[2023-12-19 10:14] VITALS: TEMP 97.8
[2023-12-19] MEDS: IV FLUID CONTINUATION 1,000 ML IV ONE ×2 (10:25→11:20)
[2023-12-19 10:43] LABS: Glucose,Whole Blood 82 mg/dL (70-110)
[2023-12-19] MEDS ORDERED: MIDAZOLAM 2 MG/2 ML VIAL ONE (10:50)
--- NOTE | 2023-12-19 11:10 | P.PCN ---
Date of Procedure: 12/19/23 Surgeon: Chapin Powell Pathology: none sent Condition: stable Disposition: PACU Description of Procedure: Procedure=1-lumbar puncture . Preoperative diagnoses=R/o multiple sclerosis Postoperative diagnosis= same as above Anesthesia= IV sedation with Versed and local lidocaine infiltration 1% 2 mL for skin and subcu infiltration. Condition= stable. Complications=none. Indication for the procedure: The patient was referred to us by her neurologist for diagnostic lumbar puncture to rule out multiple sclerosis. procedure risk and benefits and alternatives discussed with the patient and she was agreeable to proceeding with it. Of note :the patient states preoperatively that she has weakness in the right foot and numbness and tingling in the right leg.the patient also had Arnold- Chiari malformation release surgically in the occipital area. Description of the procedure=the patient was brought into the procedure room and placed in the left lateral decubitus position , monitors applied, the back prepped with chlorhexidine , skin was localized with 1% lidocaine, then 22-gauge quinckie Needle advanced slowly at L4 -5 interlaminar space to get access to the intrathecal space. The needle bevel turned 180 before entering the thecal sac to decrease the risk of postdural puncture headache. Cerebrospinal fluid was clear with no heme. Two attempts were needed. No paresthesia was encountered during this procedure .A total of 6 mL of cerebrospinal fluid were collected in 4 different tubes, the needle removed, Band-Aid applied . patient tolerated the procedure well without any complications. Further management as per her neurologist. sedation time:[id number]
[2023-12-19 11:23] VITALS: RESP 16
[2023-12-19 12:09] VITALS: BP 133/88; PULSE 67
[2023-12-19 13:25] LABS: Glucose,CSF 49 mg/dL (40-70); Total Protein,CSF 47 mg/dL (12-60)
[2023-12-19 13:51] LABS: Appearance,CSF Clear; CSF Tube Number 4; CSF Tube Volume 1.5; Nucleated Cells, CSF 1 u/L (0-5); Red Blood Cell,CSF 15 u/L (0-10)
[2023-12-20 12:04] LABS: IgG - CSF 2.1 mg/dL (0.0 - 3.4); IgG/Albumin Index (CSF) 0.53 (0.00 - 0.77)
== END 2023-12-19 12:59 | disposition home or self-care (01) ==
LOC: ORPAIN 09:33
PROVIDERS: ATTEND Anesthesiology
DX: R20.2 Paresthesia of skin (principal); Z79.1 Long term (current) use of non-steroidal anti-inflammatories (NSAID)
CPT/HCPCS: 62270; 81025; 82040; 82042; 82784; 82945; 83873; 83916; 84157; 88108; 89050; 99152